=== PATIENT | female | born 1970 | race Caucasian/White ===

== ENCOUNTER 2024-08-04 22:50 | Inpatient (IN) | payer OTHER, MEDICARE ==
[2024-08-04 23:34] VITALS: BMI 26.9
[2024-08-05] MEDS ORDERED: morphine SULFATE 4 MG/ML VIAL ONE ×3 (00:04→08:01)
[2024-08-05] MEDS: morphine CARPU-JECT 2 MG/1 ML DISP.SYRIN IM ONE (00:09)
[2024-08-05] MEDS ORDERED: LIDOCAINE HCL 1%, 10 MG/ML (20ML VIAL) ONE ×2 (02:32→02:45)
[2024-08-05] MEDS: LIDOCAINE HCL 1%, 10 MG/ML (50 mL VIAL) SQ ONE (02:58)
[2024-08-05] MEDS: morphine CARPU-JECT 4 MG/1 ML DISP.SYRIN IM ONE (03:18)
[2024-08-05] MEDS ORDERED: ACETAMINOPHEN INJECTION 100 ML ONE (03:30)
[2024-08-05] MEDS: ACETAMINOPHEN 1000 MG/100 ML BAG IVPB ONE (03:35)
[2024-08-05] MEDS: morphine SULFATE 4 MG/ML VIAL IVPUSH PRN (08:12)
[2024-08-05] MEDS ORDERED: morphine SULFATE IMMEDIATE RELEASE 30 MG TAB PO PRN (09:13)
[2024-08-05] MEDS: LEVOTHYROXINE NA 50 MCG TABLET (FP) PO SCH (10:16)
[2024-08-05] MEDS: APIXABAN 5 MG TABLET PO SCH (10:16)
[2024-08-05] MEDS: FAMOTIDINE 20 MG TABLET PO SCH (10:16)
[2024-08-05 10:34] LABS: BASO % 0.2 % (0-2.0); EOS % 1.1 % (0-4.5); HEMATOCRIT 32.4 % (32.4-45.2); HEMOGLOBIN 11.3 GM/dL (10.7-15.3); LYMPH % 20.2 % (8-40); MCHC 34.7 g/dl (32.0-36.0); MEAN CELL VOLUME 86.3 fl (80-96); MEAN PLT VOLUME 10.6 fl (7.5-11.1); MONO % 7.6 % (3.8-10.2); NEUT % 70.9 % (42.8-82.8); PLATELET COUNT 144 10^3/uL (134-434); RBC 3.76 M/mm3 (3.60-5.2); RDW 14.1 % (11.6-15.6); WHITE BLOOD COUNT 6.9 K/mm3 (4.0-10.0)
[2024-08-05 10:37] LABS: INR 1.07 (0.83-1.09); PROTHROMBIN TIME (PATIENT) 12.3 SEC (9.7-13.0)
[2024-08-05 10:46] LABS: ACTIVATED PTT 34.1 SECONDS (25.2-36.5)
[2024-08-05 11:39] LABS: POTASSIUM 4.1 mmol/L (3.5-5.1)
[2024-08-05 11:55] LABS: ALBUMIN 3.3 g/dl (3.4-5.0); BILIRUBIN,TOTAL 0.5 mg/dL (0.2-1); BLOOD UREA NITROGEN 14.1 mg/dL (7-18); CREATININE 0.7 mg/dL (0.55-1.3); MAGNESIUM 1.9 mg/dL (1.8-2.4); PHOSPHOROUS 3.5 mg/dL (2.5-4.9)
[2024-08-05] MEDS: ACETAMINOPHEN 500 MG TABLET (FP) PO PRN (13:30)
[2024-08-05] MEDS: DOCUSATE SODIUM 100 MG CAPSULE (FP) PO SCH (14:55)
[2024-08-05] MEDS: morphine SULFATE IMMEDIATE RELEASE 30 MG TAB PO PRN (15:01)
[2024-08-05] MEDS: FLU VACCINE (FLULAVAL) PF 45 MCG/0.5 ML SYRINGE 2024-2025 IM ONE (15:02)
[2024-08-05] MEDS: SENNOSIDES 8.8 MG/5 ML SYRUP PO SCH (22:46)
[2024-08-06] MEDS: ACETAMINOPHEN 1000 MG/100 ML BAG IVPB ONE (01:05)
[2024-08-06] MEDS ORDERED: LACTATED RINGERS SOLUTION 1,000 ML/1,000 ML INFUS.BAG IV SCH (14:30)
[2024-08-06] MEDS: DEXTROSE 5%-LACTATED RINGERS 1,000 ML IV SCH (15:36)
[2024-08-06] MEDS: LIDOCAINE HCL 1%, 10 MG/ML (20ML VIAL) SQ SCH (19:42)
[2024-08-07] MEDS: morphine SULFATE IMMEDIATE RELEASE 30 MG TAB PO ONE (15:05)
[2024-08-07] MEDS: ENOXAPARIN NA (PORCINE) 80 MG/0.8 ML DISP.SYRIN SQ SCH (21:25)
[2024-08-07] MEDS: morphine SULFATE IMMEDIATE RELEASE 30 MG TAB PO PRN (23:33)
[2024-08-08 08:06] LABS: HEMATOCRIT 33.4 % (32.4-45.2); HEMOGLOBIN 11.4 GM/dL (10.7-15.3); MCHC 34.3 g/dl (32.0-36.0); MEAN CELL VOLUME 87.7 fl (80-96); MEAN PLT VOLUME 10.2 fl (7.5-11.1); PLATELET COUNT 134 10^3/uL (134-434); RBC 3.81 M/mm3 (3.60-5.2); RDW 13.7 % (11.6-15.6); WHITE BLOOD COUNT 6.4 K/mm3 (4.0-10.0)
[2024-08-08 08:16] LABS: POTASSIUM 4.3 mmol/L (3.5-5.1)
[2024-08-08 08:23] LABS: BLOOD UREA NITROGEN 16.3 mg/dL (7-18)
[2024-08-08 08:27] LABS: CREATININE 0.7 mg/dL (0.55-1.3)
[2024-08-09] MEDS ORDERED: PROPOFOL 60 ML ONE (07:21)
[2024-08-09] MEDS ORDERED: MIDAZOLAM HCL 2 MG/2 ML SINGLE DOSE VIAL ONE ×2 (07:22→07:24)
[2024-08-09] MEDS ORDERED: ceFAZolin SODIUM 1 GM VIAL ONE (07:24)
[2024-08-09] MEDS ORDERED: ONDANSETRON 4 MG/2 ML VIAL ONE (07:24)
[2024-08-09] MEDS ORDERED: DEXAMETHASONE SOD PHOSPHATE 4 MG/1 ML VIAL ONE (07:24)
[2024-08-09] MEDS ORDERED: ROPIVACAINE HCL 0.5% 30ML VIAL ONE (07:27)
[2024-08-09] MEDS ORDERED: KETAMINE HCL 200 MG/20 ML VIAL ONE (08:36)
[2024-08-09] MEDS ORDERED: GLYCOPYRROLATE 0.2 MG/1 ML VIAL ONE (08:36)
[2024-08-09] MEDS ORDERED: MAGNESIUM SULF 50% (8.12 MEQ/2 ML-1 GM VIAL) ONE (08:42)
[2024-08-09] MEDS: DOCUSATE SODIUM 100 MG CAPSULE (FP) PO SCH (14:26)
[2024-08-09] MEDS: morphine SULFATE IMMEDIATE RELEASE 30 MG TAB PO PRN (14:30)
[2024-08-09] MEDS: SENNOSIDES 8.8 MG/5 ML SYRUP PO SCH (21:33)
[2024-08-09] MEDS: APIXABAN 5 MG TABLET PO SCH (21:33)
[2024-08-10] MEDS: LEVOTHYROXINE NA 50 MCG TABLET (FP) PO SCH (06:02)
[2024-08-10] MEDS: FAMOTIDINE 20 MG TABLET PO SCH (10:46)
[2024-08-10] MEDS ORDERED: morphine SULFATE IMMEDIATE RELEASE 30 MG TAB PO PRN (17:04)
[2024-08-10] MEDS: ACETAMINOPHEN 500 MG TABLET (FP) PO PRN (22:18)
[2024-08-11 14:43] VITALS: BP 110/70; PULSE 82; RESP 18; TEMP 98.2
[2024-08-12] MEDS ORDERED: morphine SULFATE IMMEDIATE RELEASE 30 MG TAB PO PRN (20:21)
[2024-08-12] MEDS ORDERED: APIXABAN 5 MG TABLET PO SCH (22:00)
[2024-08-13] MEDS ORDERED: LEVOTHYROXINE NA 50 MCG TABLET (FP) PO SCH (07:00)
[2024-08-13] MEDS ORDERED: PANTOPRAZOLE 40 MG TABLET PO SCH (10:00)
[2024-08-13] MEDS ORDERED: FAMOTIDINE 20 MG TABLET PO SCH (10:00)
[2024-08-13] MEDS ORDERED: DESLORATADINE 5 MG PO SCH (10:00)
== END 2024-08-11 18:17 | disposition home or self-care (01) | DRG 511 ==
LOC: JER 22:50 → JERBED 08-05 05:40 → OBSVTOIN 08-05 06:54 → J6W 08-05 08:09
PROVIDERS: ADMIT Internal Medicine; ATTEND Internal Medicine
PROC: 0PSH04Z Reposition Right Radius with Internal Fixation Device, Open Approach (ICD-10-PCS; principal; 2024-08-09 08:59)
DX: S52.351A Displaced comminuted fracture of shaft of radius, right arm, initial encounter for closed fracture (principal); F11.20 Opioid dependence, uncomplicated; S52.251A Displaced comminuted fracture of shaft of ulna, right arm, initial encounter for closed fracture; E03.9 Hypothyroidism, unspecified; G89.29 Other chronic pain; Z86.711 Personal history of pulmonary embolism; W01.0XXA Fall on same level from slipping, tripping and stumbling without subsequent striking against object, initial encounter; Y93.89 Activity, other specified; Y92.009 Unspecified place in unspecified non-institutional (private) residence as the place of occurrence of the external cause; Y99.8 Other external cause status
CPT/HCPCS: 36415; 73090-TC-RT-FY; 73110-TC-RT-FY; 73130-TC-RT-FY; 73200-TC-RT; 73560-TC-RT-FY; 73721-RT-TC; 76000-TC-FY; 80048; 80053; 83735; 84100; 85025; 85027; 85610; 85730; 86850; 86900; 86901; 90656; 93005; 93010; 94760; 97116-GP; 97162-GP; 99285-25; C1713; G0378; J0131

== ENCOUNTER 2024-08-12 15:04 | Inpatient (IN) | payer OTHER, MEDICARE ==
[2024-08-12 17:53] LABS: BASO % 0.3 % (0-2.0); HEMATOCRIT 35.1 % (32.4-45.2); HEMOGLOBIN 11.8 GM/dL (10.7-15.3); LYMPH % 15.5 % (8-40); MCH 29.3 pg (25.7-33.7); MCHC 33.6 g/dl (32.0-36.0); MEAN CELL VOLUME 87.3 fl (80-96); MEAN PLT VOLUME 9.4 fl (7.5-11.1); MONO % 5.1 % (3.8-10.2); NEUT % 76.1 % (42.8-82.8); PLATELET COUNT 210 10^3/uL (134-434); RBC 4.02 M/mm3 (3.60-5.2); RDW 13.6 % (11.6-15.6); WHITE BLOOD COUNT 8.7 K/mm3 (4.0-10.0)
[2024-08-12] MEDS: ACETAMINOPHEN 1000 MG/100 ML BAG IVPB ONE (18:19)
[2024-08-12 18:37] LABS: POTASSIUM 4.6 mmol/L (3.5-5.1)
[2024-08-12 18:39] LABS: CALCIUM 9.6 mg/dL (8.5-10.1)
[2024-08-12 18:40] LABS: ALBUMIN 3.4 g/dl (3.4-5.0); BLOOD UREA NITROGEN 32.2 mg/dL (7-18)
[2024-08-12 18:45] LABS: BILIRUBIN,TOTAL 0.6 mg/dL (0.2-1)
[2024-08-12] MEDS ORDERED: morphine SULFATE IMMEDIATE RELEASE 30 MG TAB PO PRN ×2 (20:29→20:30)
[2024-08-12] MEDS ORDERED: APIXABAN 5 MG TABLET ONE (22:29)
[2024-08-12] MEDS ORDERED: ACETAMINOPHEN 325 MG TABLET (FP) ONE (22:29)
[2024-08-12] MEDS: ACETAMINOPHEN 500 MG TABLET (FP) PO ONE (22:38)
[2024-08-12] MEDS: APIXABAN 5 MG TABLET PO SCH (22:38)
[2024-08-12] MEDS ORDERED: morphine SO4 SUSTAINED ACTING 30 MG TABLET.SA PO ONE (23:55)
[2024-08-13 03:32] VITALS: BMI 25.1
[2024-08-13] MEDS: LEVOTHYROXINE NA 50 MCG TABLET (FP) PO SCH (06:30)
[2024-08-13] MEDS: morphine SULFATE IMMEDIATE RELEASE 30 MG TAB PO PRN (06:34)
[2024-08-13] MEDS: PANTOPRAZOLE 40 MG TABLET PO SCH (09:42)
[2024-08-13] MEDS: LORATADINE 10 MG TABLET PO SCH (09:42)
[2024-08-13] MEDS: FAMOTIDINE 20 MG TABLET PO SCH (09:42)
[2024-08-13] MEDS ORDERED: ENOXAPARIN NA (PORCINE) 40 MG/0.4 ML DISP.SYRIN SQ SCH (10:00)
[2024-08-14] MEDS: POLYETHYLENE GLYCOL (HEALTHYLAX) 3350 17 GM PACKET PO SCH (21:17)
[2024-08-14] MEDS: DOCUSATE SODIUM 100 MG CAPSULE (FP) PO SCH (21:17)
[2024-08-15 15:19] VITALS: RESP 18
[2024-08-16 18:06] VITALS: BP 102/77; PULSE 73; TEMP 97.9
== END 2024-08-16 19:29 | DRG 561 ==
LOC: JER 15:04 → JERBED 16:26 → J8W 08-13 01:14 → OBSVTOIN 08-13 09:30
PROVIDERS: ADMIT Internal Medicine; ATTEND Nurse Practitioner Acute Care
DX: Z47.1 Aftercare following joint replacement surgery (principal); M23.203 Derangement of unspecified medial meniscus due to old tear or injury, right knee; R26.2 Difficulty in walking, not elsewhere classified; E03.9 Hypothyroidism, unspecified; G89.29 Other chronic pain; Z86.711 Personal history of pulmonary embolism; Z98.84 Bariatric surgery status; S52.91XD Unspecified fracture of right forearm, subsequent encounter for closed fracture with routine healing; W18.30XD Fall on same level, unspecified, subsequent encounter
CPT/HCPCS: 0241U-QW; 36415; 80053; 85025; 97116-GP; 97162-GP; 99285-25; G0378